=== PATIENT | female | born 1995 | race Asian ===

== ENCOUNTER 2017-07-02 21:37 | Emergency (ER) | payer OTHER ==
[~2017-07-02] VITALS: Ht 157.5 cm; Wt 45.9 kg
[2017-07-02 21:54] VITALS: Ht 157.5 cm; Wt 45.9 kg
[2017-07-02 23:30] VITALS: BP 110/79
== END 2017-07-02 23:30 | disposition home or self-care (01) ==
LOC: ED 21:37
DX: J10.1 Influenza due to other identified influenza virus with other respiratory manifestations (principal)
CPT/HCPCS: 87804